=== PATIENT | female | born 1930 | race Caucasian/White ===

== ENCOUNTER 2017-12-02 20:16 | Inpatient (IN) | payer MEDICARE, BC ==
[~2017-12-02] VITALS: Ht 162.6 cm; Wt 52.2 kg
--- NOTE | 2017-12-02 20:23 | ED.ADGEN ---
Past History Past Medical History: CAD, Diverticulitis, Gallstones, Heart Disease, UTI Adult General Chief Complaint Chief Complaint ".. I am here for two things.. 'Terrence' my 9 yr Poodle.. she came home from the [place] from her bath, hair cut and trim.. and she was so excited.. she jumped up and scratch this lt. arm.... and it now getting orlin red... and sore.. and I am also had nausea all day.. after my oat meal this morning... and my lower abd. is tender.. I do get diverticulitis... and I started a 1000 mg of Amoxicillin.. Dr. Cruz gave it to me... if I start to get Diverticulitis.." HPI HPI Patient is a 87 year old female who presents with above hx and complaints of Lt forearm 4 cm laceration and cellulitis from injury by her Poodle "Terrence" on 10/30. Pt does not remember her last tetanus. Pt. also complaining of generalized abd. pain since this am. Patient's had 4 episodes of forceful vomiting. Patient denies any intake bad food. Patient denies any specific ill contacts or travel. Patient does have a history of diverticulitis. Does have a cardiac history which required placement of a pacer. Patient has had no change in medicines. Patient did have a stool today. Patient normally follows with Dr. Sanchez. Review of Systems Review of Systems Constitutional: Denies fever or chills [] Eyes: Denies change in visual acuity, redness, or eye pain [] HENT: Denies nasal congestion or sore throat [] Respiratory: Denies cough or shortness of breath [] Cardiovascular: No additional information not addressed in HPI [] GI: Plaints of abdominal pain, nausea, vomiting, : Denies dysuria or hematuria [] Musculoskeletal: Denies back pain or joint pain [] Integument: Denies rash or skin lesions []complains left forearm cellulitis Neurologic: Denies headache, focal weakness or sensory changes [] Endocrine: Denies polyuria or polydipsia [] All other systems were reviewed and found to be within normal limits, except as documented in this note. Family History Family History Noncontributory Current Medications Current Medications Current Medications Medications (Trade) Dose Ordered Sig/Shelley Start Time Stop Time Status Last Admin Dose Admin Ceftriaxone Sodium 1 gm/ Sodium Chloride 50 ml @ 100 mls/hr 1X ONCE 12/02/17 21:00 12/02/17 21:29 DC 12/02/17 21:57 100 MLS/HR Ceftriaxone Sodium (Rocephin) 1 gm STK-MED ONCE 12/02/17 21:19 12/02/17 21:20 DC Diphenhydramine HCl (Benadryl) 25 mg 1X ONCE 12/02/17 22:30 12/02/17 22:31 DC 12/02/17 22:36 25 MG Diphtheria/ Tetanus/Acell Pertussis (Boostrix) 0.5 ml ONCE ONCE 12/02/17 22:30 12/02/17 22:31 DC 12/02/17 22:08 0.5 ML Famotidine (Pepcid Vial) 20 mg 1X ONCE 12/02/17 21:30 12/02/17 21:31 DC 12/02/17 21:55 20 MG Fentanyl Citrate (Fentanyl 2ml Vial) 25 mcg 1X ONCE 12/02/17 21:30 12/02/17 21:31 DC Folic Acid (FOLIC ACID SYRINGE for ER) 5 mg STK-MED ONCE 12/03/17 01:13 12/03/17 01:14 DC Info (Do NOT chart on this entry -- for MONITORING) 1 each PRN DAILY PRN 12/02/17 21:30 12/04/17 21:29 Iohexol (Omnipaque 240 Mg/ml) 50 ml 1X ONCE 12/02/17 22:00 12/02/17 22:01 DC 12/03/17 00:12 50 ML Iohexol (Omnipaque 300 Mg/ml) 75 ml 1X ONCE 12/02/17 22:00 12/02/17 22:01 DC 12/03/17 00:11 75 ML Lactated Ringer's 1,000 ml @ 100 mls/hr Q10H 12/02/17 21:00 12/03/17 06:59 Magnesium Sulfate 50 ml @ 25 mls/hr 1X ONCE 12/02/17 23:45 12/03/17 01:44 Metronidazole 100 ml @ 100 mls/hr 1X ONCE 12/03/17 01:00 12/03/17 01:59 Multivitamins/ Minerals (Infuvite Adult) 10 ml STK-MED ONCE 12/03/17 01:13 12/03/17 01:14 DC Multivitamins/ Minerals 10 ml/ Folic Acid 1 mg/ Thiamine HCl 100 mg/Sodium Chloride 1,011.1 ml @ 1,000 mls/ hr 1X ONCE 12/03/17 01:00 12/03/17 02:00 Ondansetron HCl (Zofran Odt) 8 mg 1X ONCE 12/02/17 20:30 12/02/17 20:48 DC 12/02/17 20:46 8 MG Ondansetron HCl (Zofran) 8 mg 1X ONCE 12/02/17 22:00 12/02/17 22:01 DC Promethazine HCl (Phenergan Im) 25 mg 1X ONCE 12/02/17 22:30 12/02/17 22:31 DC 12/02/17 22:36 25 MG Sodium Bicarbonate (Sodium Bicarb Adult 8.4% Syr) 50 meq 1X ONCE 12/02/17 23:45 12/02/17 23:46 DC Sodium Chloride 50 ml @ As Directed STK-MED ONCE 12/02/17 21:19 12/02/17 21:20 DC Tetanus/ Diphtheria Toxoids Adsorbed (Tenivac Vial) 0.5 ml ONCE ONCE 12/02/17 21:30 12/02/17 21:31 Cancel Thiamine HCl 200 mg STK-MED ONCE 12/03/17 01:13 12/03/17 01:14 DC Allergies Allergies Allergies Coded Allergies Type Severity Reaction Last Updated Verified No Known Drug Allergies 12/02/17 No Physical Exam Physical Exam Constitutional: Moderately acute distress, non-toxic appearance. [] HENT: Normocephalic, atraumatic, bilateral external ears normal, oropharynx moist, no oral exudates, nose normal. [] Eyes: PERRLA, EOMI, conjunctiva normal, no discharge. [] Neck: Normal range of motion, no tenderness, supple, no stridor. [] Cardiovascular:Tachycardial Heart rate regular rhythm, no murmur [] Lungs & Thorax: Bilateral breath sounds equal at apex on auscultation [] Abdomen: Bowel sounds hyperactive, soft, generalize tenderness, tympanic distention, no masses, no pulsatile masses. [] Old surgical scar. Skin: Warm, dry, no erythema, no rash. Poor turgor. Dog scratch and cellulitis Lt. forearm. Back: No tenderness, no CVA tenderness. [] Kyphosis. Extremities: No tenderness, no cyanosis, no clubbing, ROM intact, no edema. [ Arthritis . Lt. forearm cellulitis as per HPI. Neurologic: Alert and oriented X 3, normal motor function, normal sensory function, no focal deficits noted. [] Psychologic: Affect anxious, judgement normal, mood normal. [] Current Patient Data Vital Signs Vital Signs Date Time Temp Pulse Resp B/P (MAP) Pulse Ox O2 Delivery O2 Flow Rate FiO2 12/02/17 20:30 98.5 91 16 98 Room Air Lab Results Laboratory Tests Test 12/02/17 21:00 12/02/17 23:10 White Blood Count 5.2 x10^3/uL (4.0-11.0) Red Blood Count 4.08 x10^6/uL (3.50-5.40) Hemoglobin 12.3 g/dL (12.0-15.5) Hematocrit 37.0 % (36.0-47.0) Mean Corpuscular Volume 91 fL (79-100) Mean Corpuscular Hemoglobin 30 pg (25-35) Mean Corpuscular Hemoglobin Concent 33 g/dL (31-37) Red Cell Distribution Width 13.0 % (11.5-14.5) Platelet Count 219 x10^3/uL (140-400) Neutrophils (%) (Auto) 76 % (31-73) H Lymphocytes (%) (Auto) 17 % (24-48) L Monocytes (%) (Auto) 6 % (0-9) Eosinophils (%) (Auto) 0 % (0-3) Basophils (%) (Auto) 0 % (0-3) Neutrophils # (Auto) 4.0 x10^3uL (1.8-7.7) Lymphocytes # (Auto) 0.9 x10^3/uL (1.0-4.8) L Monocytes # (Auto) 0.3 x10^3/uL (0.0-1.1) Eosinophils # (Auto) 0.0 x10^3/uL (0.0-0.7) Basophils # (Auto) 0.0 x10^3/uL (0.0-0.2) Prothrombin Time 9.6 SEC (9.4-11.4) Prothrombin Time INR 1.0 (0.9-1.1) PTT 27 SEC (23-33) D-Dimer (Amanda) 0.55 mg/L (0.00-0.50) H Sodium Level 125 mmol/L (136-145) L Potassium Level 3.9 mmol/L (3.5-5.1) Chloride Level 91 mmol/L (98-107) L Carbon Dioxide Level 24 mmol/L (21-32) Anion Gap 10 (6-14) Blood Urea Nitrogen 6 mg/dL (7-20) L Creatinine 0.7 mg/dL (0.6-1.0) Estimated GFR (Cockcroft-Gault) 79.5 Glucose Level 133 mg/dL (70-99) H Calcium Level 8.5 mg/dL (8.5-10.1) Magnesium Level 1.7 mg/dL (1.8-2.4) L Total Bilirubin 0.5 mg/dL (0.2-1.0) Direct Bilirubin 0.2 mg/dL (0.0-0.2) Aspartate Amino Transferase (AST) 25 U/L (15-37) Alanine Aminotransferase (ALT) 24 U/L (14-59) Alkaline Phosphatase 71 U/L (46-116) Creatine Kinase 244 U/L (26-192) H Creatine Kinase MB (Mass) 3.9 ng/mL (0.0-3.6) H Creatine Kinase MB Relative Index 1.6 % (0-4) Troponin I Quantitative < 0.017 ng/mL (0-0.055) [id number]-Type Natriuretic Peptide 194 pg/mL (0-449) Total Protein 7.1 g/dL (6.4-8.2) Albumin 3.5 g/dL (3.4-5.0) Lipase 126 U/L (73-393) Urine Collection Type U cath Urine Color Yellow Urine Clarity Hazy Urine pH 7.0 Urine Specific Girard 1.015 Urine Protein Neg (NEG-TRACE) Urine Glucose (UA) Neg mg/dL (NEG) Urine Ketones (Stick) Neg mg/dL (NEG) Urine Blood Neg (NEG) Urine Nitrite Neg (NEG) Urine Bilirubin Neg (NEG) Urine Urobilinogen Dipstick 0.2 mg/dL (0.2 mg/dL) Urine Leukocyte Esterase Mod (NEG) Urine RBC Occ /HPF (0-2) Urine WBC 11-20 /HPF (0-4) Urine Squamous Epithelial Cells Occ /LPF Urine Transitional Epithelial Cells Few /LPF Urine Bacteria Few /HPF (0-FEW) Urine Mucus Slight /LPF EKG EKG I interpretation EKG shows a sinus rhythm at a rate of 99 with some leftward axis. No findings acute STEMI of contralateral changes[] Radiology/Procedures Radiology/Procedures My interpretation of chest x-ray and acute abdomen shows- acute cardiopulmonary findings. No free air in the diaphragm. There is a lucency on right chest wall which is suspect is a skin fold but could be pneumomediastinum. Abdomen film shows gallstones. Does have a couple isolated loops of bowel. Degenerative joint changes.[] Course & Med Decision Making Course & Med Decision Making Pertinent Labs and Imaging studies reviewed. (See chart for details). Discussed presentation, testing and treatment plan with Dr. Moyer. Patient will be admitted on clear fluid diet. Continue antibiotics. [] Final Impression Final Impression 1. Abd. Pain 2. Cellulitis - Lt Fore arm 3. Hx. of Urinary incontinence[] 4. Hyponatremia 125 5. Hypomagnesium 1.7 6. Mild elevation D-dimer 0. 55 7. Nausea and Vomiting 8. UTI 9. Gall Stones- Possible Cholecystitis 10. Colitis- Transverse, descending colon and rectum Dragon Disclaimer Dragon Disclaimer This electronic medical record was generated, in whole or in part, using a voice recognition dictation system. LIBRADO HERNANDEZ MD Dec 02, 2017 20:23
[2017-12-02] MEDS ORDERED: ONDANSETRON ODT 4 MG TAB.RAPDIS PO ONE (20:30)
[2017-12-02] MEDS: IV RINGERS SOLUTION,LACTATED 1,000 ML IV SCH (21:00)
[2017-12-02 21:13] LABS: BASO % 0 % (0-3); EOS % 0 % (0-3); HEMOGLOBIN 12.3 g/dL (12.0-15.5); LYMPH # 0.9 x10^3/uL (1.0-4.8); LYMPH % 17 % (24-48); MEAN CORPUSCULAR HEMOGLOBIN 30 pg (25-35); MEAN CORPUSCULAR HGB CONC 33 g/dL (31-37); MEAN CORPUSCULAR VOLUME 91 fL (79-100); MONO # 0.3 x10^3/uL (0.0-1.1); MONO % 6 % (0-9); NEUT % 76 % (31-73); PLATELET COUNT 219 x10^3/uL (140-400); RED BLOOD COUNT 4.08 x10^6/uL (3.50-5.40); WHITE BLOOD COUNT 5.2 x10^3/uL (4.0-11.0)
[2017-12-02] MEDS ORDERED: cefTRIAXone SODIUM 1 GM VIAL IV ONE (21:19)
[2017-12-02] MEDS ORDERED: IV NORMAL SALINE 50ML 50 ML ONE (21:19)
[2017-12-02] MEDS ORDERED: ONDANSETRON PF 4 MG/2 ML VIAL. ONE (21:21)
[2017-12-02] MEDS ORDERED: TETANUS AND DIPHTHERIA TOX/PF 0.5 ML VIAL. VAX IM ONE (21:30)
[2017-12-02] MEDS ORDERED: FAMOTIDINE 20 MG/2 ML VIAL IVP ONE (21:30)
[2017-12-02] MEDS ORDERED: CONTRAST GIVEN MC PRN (21:30)
[2017-12-02 21:53] LABS: ALBUMIN 3.5 g/dL (3.4-5.0); CALCIUM 8.5 mg/dL (8.5-10.1); CREATININE 0.7 mg/dL (0.6-1.0); DIRECT BILIRUBIN 0.2 mg/dL (0.0-0.2); GFR 79.5; MAGNESIUM 1.7 mg/dL (1.8-2.4); POTASSIUM 3.9 mmol/L (3.5-5.1); TOTAL BILIRUBIN 0.5 mg/dL (0.2-1.0); TOTAL PROTEIN 7.1 g/dL (6.4-8.2)
[2017-12-02] MEDS ORDERED: IOHEXOL 300 MG/ML 75 ML VIAL. IV ONE (22:00)
[2017-12-02] MEDS ORDERED: IOHEXOL 240 MG/ML 50ML VIAL. PO ONE (22:00)
[2017-12-02] MEDS ORDERED: ONDANSETRON PF 4 MG/2 ML VIAL. IV ONE (22:00)
--- NOTE | 2017-12-02 22:25 | RAD ---
Acute abdominal series with single view chest December 02, 2017 INDICATION: Abdominal pain, nausea and vomiting. COMPARISON: None available. TECHNIQUE: Single view of the chest, upright view of the abdomen and supine view of abdomen are provided. FINDINGS: The cardiomediastinal silhouette is within normal limits. There are no pleural effusions. No pulmonary vascular congestion or pneumothorax. Lucency along the right heart border and left AP window may represent pneumomediastinum. Further evaluation with CT chest may be of benefit. There is no free intraperitoneal air. There are no dilated loops of small or large bowel. Calcifications in the right upper quadrant may represent gallstones. Alternatively, findings could represent renal calculi. Phleboliths are identified within the pelvis. IMPRESSION: Lucency along the right heart border and left AP window may represent pneumomediastinum. Further evaluation with CT chest may be of benefit. Nonobstructive bowel gas pattern. Gallstones versus cholelithiasis. FOR INTERNAL CODING PURPOSES Critical result: Findings discussed with LIBRADO HERNANDEZ at 12/02/2017 10:21 PM. RESULT CODE: (C) Electronically signed by: Verónica Maria MD (12/02/2017 10:21 PM) [id number]
[2017-12-02] MEDS ORDERED: DIPHTH,PERTUSS(ACELL),TET TOX 0.5 ML DISP.SYRIN. VAX IM ONE (22:30)
[2017-12-02] MEDS ORDERED: diphenhydrAMINE 50 MG/ML VIAL IVP ONE (22:30)
[2017-12-02] MEDS ORDERED: PROMETHAZINE IM 25 MG/ML VIAL IM ONE (22:30)
[2017-12-02 23:38] LABS: BILIRUBIN,URINE NEG (NEG); CLARITY,URINE HAZY; COLOR,URINE YELLOW; GLUCOSE,URINE NEG (NEG)
[2017-12-02 23:39] LABS: BACTERIA,URINE FEW /HPF (0-FEW); NITRITE,URINE NEG (NEG); RBC,URINE OCC /HPF (0-2); SQUAMOUS EPITHELIAL CELL,UR OCC /LPF; UROBILINOGEN,URINE 0.2 mg/dL (0.2 mg/dL)
[2017-12-02] MEDS ORDERED: MAGNESIUM SULFATE 2GM 50 ML IV ONE (23:45)
[2017-12-02] MEDS ORDERED: SODIUM BICARB ADULT 8.4% 50 MEQ/50 ML DISP.SYRIN. IV ONE (23:45)
--- NOTE | 2017-12-03 00:10 | EKG ---
[address] [address] Test Date: 2017-12-02 Test Time: 21:02:51 Pat Name: RUDDY RAMIREZ Department: Room: Gender: F Hand Surgeon: : [id number] Requested By: LIBRADO HERNANDEZ Order Number: [id number] Reading MD: Cameron Mcrae Measurements Intervals [place] Rate: 89 P: 60 NV: 158 QRS: -13 QRSD: 80 T: 59 QT: 368 QTc: 449 Interpretive Statements SINUS RHYTHM LEFTWARD AXIS Electronically Signed On 12-04-2017 11:23:14 CDT by Cameron Mcrae
--- NOTE | 2017-12-03 00:59 | RAD ---
Examination: CT of the chest abdomen pelvis with IV contrast HISTORY: History of abdominal pain, nausea, vomiting, pneumomediastinum COMPARISON: None available Technique: Axial CT images of the chest abdomen pelvis were performed with IV contrast. Coronal and sagittal reformats were performed Exposure: One or more of the following individualized dose reduction techniques were utilized for this examination: 1. Automated exposure control 2. Adjustment of the mA and/or kV according to patient size 3. Use of iterative reconstruction technique FINDINGS: The central airways are patent. Mild cardiomegaly. The caliber of the aorta grossly appears unremarkable. No evidence of pneumomediastinum. Minimal bibasilar lung atelectasis. 4 mm solid nodule identified in the left lower lobe of the lung. No evidence of free air identified in the abdomen. The visualized liver, spleen, adrenals grossly appears unremarkable. The gallbladder is mildly distended. Questionable mild fat stranding identified about the gallbladder. Multiple gallstones identified within the gallbladder. Cystic structures identified in the left kidney with the largest measuring 1.7 cm likely cysts. The stomach is mildly distended. The visualized pancreas grossly appears unremarkable. The small bowel is nondilated. The bilateral kidneys enhance symmetrically. Small hiatal hernia. The stomach is mildly distended. The small bowel is nondilated. The evaluation of appendix is limited. There is mild thickened appearance of the wall of the transverse colon and the descending colon with surrounding probable minimal fat stranding Multiple sigmoid colon diverticulosis. There is mild thickened appearance of the wall of the rectum with surrounding mild inflammatory fat stranding. Moderately distended urinary bladder. There is moderate compression changes of T11, T12 vertebral bodies. Moderate degenerative changes lumbar spine. IMPRESSION: 1. No evidence of pneumomediastinum. 4 mm nodule identified in the left lower lobe of the lung. Follow-up per Fleischner Society guidelines with a follow-up CT in 3-6 months. 2. Mild thickened appearance of the wall of the transverse colon and the descending colon with surrounding fat stranding probably colitis. There is mild thickened appearance of the wall of the rectum with surrounding fat stranding probably proctitis. Multiple sigmoid colon diverticulosis. 3. Cholelithiasis. Mild fat stranding identified about the gallbladder. Cholecystitis is not completely excluded. Electronically signed by: Harris Craig MD (12/03/2017 12:55 AM) [place] [id number]
[2017-12-03] MEDS ORDERED: MVI, ADULT NO.4 WITH VIT K 10 ML, FOLIC ACID SYRINGE for ER 1 MG, THIAMINE INJ 100 MG i... IV ONE ×4 (01:00)
[2017-12-03] MEDS ORDERED: THIAMINE 200 MG/2 ML VIAL. IV ONE (01:13)
[2017-12-03] MEDS ORDERED: FOLIC ACID 5 MG/ML SYRINGE for ER IV ONE (01:13)
[2017-12-03] MEDS ORDERED: MVI, ADULT NO.4 WITH VIT K 10 ML VIAL IV ONE (01:13)
[2017-12-03] MEDS ORDERED: IV RINGERS SOLUTION,LACTATED 1,000 ML IV SCH (01:30)
[2017-12-03] MEDS ORDERED: diphenhydrAMINE 50 MG/ML VIAL IV PRN (01:30)
[2017-12-03] MEDS ORDERED: PROMETHAZINE IM 25 MG/ML VIAL IM PRN (01:30)
[2017-12-03] MEDS ORDERED: ONDANSETRON PF 4 MG/2 ML VIAL. IV PRN (01:30)
[2017-12-03 03:45] VITALS: BP 174/83
[2017-12-03] MEDS ORDERED: Influenza vaccine per PROTOCOL. MC PRN (04:00)
[2017-12-03] MEDS ORDERED: [UNRECOGNIZED DRUG - REMARK] IV SCH ×4 (04:00)
[2017-12-03] MEDS ORDERED: CHOL10003 PO (04:10)
[2017-12-03] MEDS ORDERED: THYR16.2 PO (04:11)
[2017-12-03] MEDS ORDERED: ASPI81TA59 PO (04:11)
[2017-12-03] MEDS ORDERED: LOSA25TA5 PO (04:12)
[2017-12-03] MEDS ORDERED: ASCO500C9 PO (04:13)
[2017-12-03] MEDS ORDERED: [UNRECOGNIZED DRUG - OTHER] (04:16)
[2017-12-03] MEDS: IV RINGERS SOLUTION,LACTATED 1,000 ML IV SCH (04:48)
[2017-12-03] MEDS ORDERED: diphenhydrAMINE HCL 25 MG CAPSULE PO PRN (05:00)
[2017-12-03 05:13] VITALS: BP 172/83
[2017-12-03 07:00] LABS: BASO % 0 % (0-3); EOS % 0 % (0-3); HEMOGLOBIN 12.1 g/dL (12.0-15.5); LYMPH # 2.1 x10^3/uL (1.0-4.8); LYMPH % 37 % (24-48); MEAN CORPUSCULAR HEMOGLOBIN 30 pg (25-35); MEAN CORPUSCULAR HGB CONC 34 g/dL (31-37); MEAN CORPUSCULAR VOLUME 91 fL (79-100); MONO # 0.6 x10^3/uL (0.0-1.1); MONO % 11 % (0-9); NEUT # 2.9 x10^3uL (1.8-7.7); NEUT % 51 % (31-73); PLATELET COUNT 224 x10^3/uL (140-400); RED BLOOD COUNT 3.98 x10^6/uL (3.50-5.40); RED CELL DISTRIBUTION WIDTH 13.1 % (11.5-14.5); WHITE BLOOD COUNT 5.7 x10^3/uL (4.0-11.0)
[2017-12-03 07:14] LABS: AMYLASE 62 U/L (25-115); LIPASE 110 U/L (73-393)
[2017-12-03 07:18] LABS: ALBUMIN/GLOBULIN RATIO 0.9 (1.0-1.7); CALCIUM 8.4 mg/dL (8.5-10.1); CREATININE 0.7 mg/dL (0.6-1.0); GFR 79.5; POTASSIUM 3.7 mmol/L (3.5-5.1); TOTAL BILIRUBIN 0.5 mg/dL (0.2-1.0); TOTAL PROTEIN 6.2 g/dL (6.4-8.2)
[2017-12-03] MEDS ORDERED: BACITRACIN/POLYMYXIN B TOPICAL OINT 15GM TUBE. TP SCH (09:00)
[2017-12-03] MEDS ORDERED: FAMOTIDINE 20 MG TABLET PO SCH (09:00)
--- NOTE | 2017-12-03 10:05 | RAD ---
Bilateral lower extremity venous ultrasound, 12/03/2017: History: Elevated d-dimer Duplex evaluation of the deep veins in the lower extremities was performed including grayscale, color-flow and spectral Doppler analysis. The femoral and popliteal veins demonstrate normal compressibility and normal responses to distal augmentation maneuvers. Color imaging of those vessels shows no evidence of intraluminal clot. The visualized deep veins in both calves are patent. Incidental note is made of a 6 x 3.9 x 2.3 cm fluid collection in the left popliteal fossa compatible with a Zimmerman's cyst. IMPRESSION: 1. There is no sonographic evidence of deep vein thrombosis in either lower extremity. 2. Left popliteal cyst. Electronically signed by: Stone Castrejon MD (12/03/2017 10:01 AM) [facility]
[2017-12-03 10:59] VITALS: BP 147/65
--- NOTE | 2017-12-03 13:18 | PDOC1 ---
History of Present Illness History of Present Illness 87-year-old female with history of diverticulitis presented to the emergency department with left lower quadrant abdominal pain and left arm abrasion. Patient states that last she took her dog to the groomer and while transporting her back home the dog accidentally scratched the patient's dorsal left forearm. Produce a small skin tear, bleeding was controlled and is scabbed over however she's had increasing redness and tenderness and warmth since that time. Since antibiotics were initiated yesterday she has seen significant improvement, pain has resolved swelling and redness has improved significantly. Tetanus is up-to-date. Patient also states that she's been dealing with diverticulitis since around 1979. When she begins to develop left lower quadrant discomfort she takes amoxicillin which usually improves her symptoms. Yesterday morning she noticed the left lower quadrant discomfort and took her home amoxicillin however throughout the day her discomfort worsened and she had 4 episodes of forceful emesis followed by dry heaving. She presented to the emergency department in great discomfort and very nauseous. She was extensively evaluated in the emergency department, EKG was normal sinus rhythm at 99 bpm with no significant changes. D-dimer was 0.55, sodium was 125 (improved to 134 today with hydration) , and urine grossly positive for infection. CT chest abdomen and pelvis: IMPRESSION: 1. No evidence of pneumomediastinum. 4 mm nodule identified in the left lower lobe of the lung. Follow-up per Fleischner Society guidelines with a follow-up CT in 3-6 months. 2. Mild thickened appearance of the wall of the transverse colon and the descending colon with surrounding fat stranding probably colitis. There is mild thickened appearance of the wall of the rectum with surrounding fat stranding probably proctitis. Multiple sigmoid colon diverticulosis. 3. Cholelithiasis. Mild fat stranding identified about the gallbladder. Cholecystitis is not completely excluded. She was admitted for pain control, IV hydration and antibiotics, and anti- emetics. Lower extremity Dopplers overnight negative for DVT. I find her sitting up in bed watching television with company at the bedside in no apparent distress. She is very pleasant and states that although she has an occasional sensation of nausea and very mild left lower quadrant discomfort she would like to go home. She feels that she can take oral antibiotics and hydrate and agrees to follow-up with Dr. Kaiser earlier this week. Past medical history: Coronary artery disease, diverticulitis, gallstones, urinary tract infection Past surgical history: Pacemaker Social history: Denies etoh/tob or illicit substances Chief Complaint: NAUSEA/VOMITING/DIARRHEA Allergies: Coded Allergies: No Known Drug Allergies (Unverified , 12/02/17) Review of Systems Review Of Systems Fourteen system , review of systems has been reviewed. See HPI for pertinent positives and negative responses, other herbert all other systems are negative, non pertinent or non contributory Constitutional: No: Fever, Chills, Sweats, Weakness Eyes: No: Blurry vision, Eye Pain, Photophobia ENT: No: Ear pain, Nose congestion, Throat pain Respiratory: No: Cough, Shortness of breath, Wheezing Cardiovascular: No: Chest Pain, Palpitations, Edema Gastrointestinal: YES: Nausea, Vomiting, Abdominal Pain; No: Diarrhea, Constipation, Melena, Hematochezia Musculoskeletal: No: Gait Disturbance, Joint Swelling SKIN: YES: Other (see history of present illness) Neurological: No: Confusion, Dizziness, Headaches Medications Current Medications Ondansetron HCl (Zofran Odt) 8 mg 1X ONCE PO Last administered on 12/02/17at 20 :46; Start 12/02/17 at 20:30; Stop 12/02/17 at 20:48; Status DC Lactated Ringer's 1,000 ml @ 100 mls/hr Q10H IV Last administered on at 04:48; Start 12/02/17 at 21:00; Stop 12/03/17 at 07:00; Status DC Tetanus/ Diphtheria Toxoids Adsorbed (Tenivac Vial) 0.5 ml ONCE ONCE VAX IM ; Start 12/02/17 at 21:30; Stop 12/02/17 at 21:31; Status Cancel Ceftriaxone Sodium 1 gm/ Sodium Chloride 50 ml @ 100 mls/hr 1X ONCE IV Last administered on 12/02/17at 21:57; Start 12/02/17 at 21:00; Stop 12/02/17 at 21:29 ; Status DC Famotidine (Pepcid Vial) 20 mg 1X ONCE IVP Last administered on 12/02/17at 21: 55; Start 12/02/17 at 21:30; Stop 12/02/17 at 21:31; Status DC Fentanyl Citrate (Fentanyl 2ml Vial) 25 mcg 1X ONCE IV ; Start 12/02/17 at 21: 30; Stop 12/02/17 at 21:31; Status DC Iohexol (Omnipaque 240 Mg/ml) 50 ml 1X ONCE PO Last administered on 12/03/17at 00:12; Start 12/02/17 at 22:00; Stop 12/02/17 at 22:01; Status DC Iohexol (Omnipaque 300 Mg/ml) 75 ml 1X ONCE IV Last administered on 12/03/17at 00:11; Start 12/02/17 at 22:00; Stop 12/02/17 at 22:01; Status DC Sodium Chloride 50 ml @ As Directed STK-MED ONCE .ROUTE ; Start 12/02/17 at 21: 19; Stop 12/02/17 at 21:20; Status DC Ceftriaxone Sodium (Rocephin) 1 gm STK-MED ONCE IV ; Start 12/02/17 at 21:19; Stop 12/02/17 at 21:20; Status DC Ondansetron HCl (Zofran) 4 mg STK-MED ONCE .ROUTE ; Start 12/02/17 at 21:21; Stop 12/02/17 at 21:22; Status DC Info (Do NOT chart on this entry -- for MONITORING) 1 each PRN DAILY PRN MC SEE COMMENTS; Start 12/02/17 at 21:30; Stop 12/04/17 at 21:29 Ondansetron HCl (Zofran) 8 mg 1X ONCE IV ; Start 12/02/17 at 22:00; Stop at 22:01; Status DC Diphtheria/ Tetanus/Acell Pertussis (Boostrix) 0.5 ml ONCE ONCE VAX IM Last administered on 12/02/17at 22:08; Start 12/02/17 at 22:30; Stop 12/02/17 at 22:31 ; Status DC Promethazine HCl (Phenergan Im) 25 mg 1X ONCE IM Last administered on at 22:36; Start 12/02/17 at 22:30; Stop 12/02/17 at 22:31; Status DC Diphenhydramine HCl (Benadryl) 25 mg 1X ONCE IVP Last administered on at 22:36; Start 12/02/17 at 22:30; Stop 12/02/17 at 22:31; Status DC Sodium Bicarbonate (Sodium Bicarb Adult 8.4% Syr) 50 meq 1X ONCE IV Last administered on 12/03/17at 01:22; Start 12/02/17 at 23:45; Stop 12/02/17 at 23:46 ; Status DC Magnesium Sulfate 50 ml @ 25 mls/hr 1X ONCE IV Last administered on 12/03/17at 01:22; Start 12/02/17 at 23:45; Stop 12/03/17 at 01:44; Status DC Metronidazole 100 ml @ 100 mls/hr 1X ONCE IV Last administered on 12/03/17at 01:22; Start 12/03/17 at 01:00; Stop 12/03/17 at 01:59; Status DC Multivitamins/ Minerals 10 ml/ Folic Acid 1 mg/ Thiamine HCl 100 mg/Sodium Chloride 1,011.1 ml @ 1,000 mls/ hr 1X ONCE IV ; Start 12/03/17 at 01:00; Stop 12/03/17 at 02:00; Status Cancel Thiamine HCl 200 mg STK-MED ONCE IV ; Start 12/03/17 at 01:13; Stop 12/03/17 at 01:14; Status DC Multivitamins/ Minerals (Infuvite Adult) 10 ml STK-MED ONCE IV ; Start 12/03/17 at 01:13; Stop 12/03/17 at 01:14; Status DC Folic Acid (FOLIC ACID SYRINGE for ER) 5 mg STK-MED ONCE IV ; Start 12/03/17 at 01:13; Stop 12/03/17 at 01:14; Status DC Ondansetron HCl (Zofran) 4 mg PRN Q4HRS PRN IV NAUSEA/VOMITING; Start 12/03/17 at 01:30; Stop 12/04/17 at 01:29 Fentanyl Citrate (Fentanyl 2ml Vial) 25 mcg PRN Q1HR PRN IV PAIN; Start at 01:30; Stop 12/04/17 at 01:29 Ceftriaxone Sodium 1 gm/ Sodium Chloride 50 ml @ 100 mls/hr QHS IV ; Start at 21:00 Metronidazole 100 ml @ 100 mls/hr Q8HRS IV Last administered on 12/03/17at 06: 06; Start 12/03/17 at 06:00 Famotidine (Pepcid) 20 mg DAILY PO ; Start 12/03/17 at 09:00 Lactated Ringer's 1,000 ml @ 160 mls/hr Q6H15M IV ; Start 12/03/17 at 01:30; Stop 12/03/17 at 05:22; Status DC Bacitracin/ Polymyxin B Sulfate (Polysporin) 1 jaci BID TP ; Start 12/03/17 at 09 :00 Promethazine HCl (Phenergan Im) 25 mg QIDPRN PRN IM nv; Start 12/03/17 at 01:30 Diphenhydramine HCl (Benadryl) 25 mg QIDPRN PRN IV nv; Start 12/03/17 at 01:30 ; Stop 12/03/17 at 04:57; Status DC Folic Acid 1 mg/ Thiamine HCl 100 mg/Multivitamins/ Minerals 10 ml/ Lactated Ringer's 1,011.2 ml @ 1,000 mls/ hr Q1H1M IV Last administered on 12/03/17at 04 :00; Start 12/03/17 at 04:00; Stop 12/03/17 at 05:00; Status DC Info (FLU VACCINE per PROTOCOL) 1 ea PRN 1X PRN MC PER PROTOCOL; Start at 04:00; Status UNV Influenza Virus Vaccine (Afluria Trivalent [id number] Syringe) 0.5 ml ONCE ONCE VAX IM ; Start 12/03/17 at 09:00; Stop 12/03/17 at 09:02; Status DC Diphenhydramine HCl (Benadryl) 25 mg PRN Q6HRS PRN PO ITCHING Last administered on 12/03/17at 05:11; Start 12/03/17 at 05:00 Active Scripts Active Reported [bimetriq] Vitamin C (Ascorbic Acid) 500 Mg Capsule 500 Mg PO DAILY Losartan Potassium 25 Mg Tablet 25 Mg PO DAILY Nature-Throid (Thyroid,Pork) 16.25 Mg Tablet 16.25 Mg PO DAILY Children's Aspirin (Aspirin) 81 Mg Tab.chew 81 Mg PO 3X/WEEK Vitamin D3 (Cholecalciferol (Vitamin D3)) 1,000 Unit Tablet 1 Tab PO DAILY Exam Vital Signs Vital Signs Date Time Temp Pulse Resp B/P (MAP) Pulse Ox O2 Delivery O2 Flow Rate FiO2 12/03/17 10:59 98.1 70 20 147/65 (92) 98 Room Air General Appearance: Alert, Oriented X3, Cooperative, No acute distress HEENT: Atraumatic, PERRLA, EOMI, Mucous membr. moist/pink Respiratory: Clear to auscultation, Normal air movement Heart: Regular rate, No murmurs Abdominal: Normal bowel sounds, Soft (nondistended, negative Johnson and McBurney, mild abdominal muscle and left lower quadrant tenderness without rebound or guarding no palpable masses) Extremities: No clubbing, No cyanosis, No edema Skin: No rashes (1.5 cm scabbed skin tear dorsal left forearm with 3 cm halo induration and erythema and warmth no discharge or palpable abscess) Neuro: Normal speech, Normal tone, Cranial nerves 3-12 NL Psych/Mental Status: Mental status NL, Mood NL Assessment/Plan Assessment/Plan Colitis/diverticulitis Left upper extremity skin tear and cellulitis Elevated d-dimer Dehydration with hyponatremia (sodium 134 improved from 125 with hydration Urinary tract infection Cipro 500 mg twice a day 10 days Flagyl 500 mg twice a day 10 days Aggressive hydration Zofran ODT 4 mg when necessary Follow-up with Dr. Kaiser in 3-5 days for recheck COURSE Allergies Coded Allergies Type Severity Reaction Last Updated Verified No Known Drug Allergies 12/02/17 No Laboratory Tests Test 12/02/17 21:00 12/02/17 23:10 12/03/17 06:28 White Blood Count 5.2 x10^3/uL (4.0-11.0) 5.7 x10^3/uL (4.0-11.0) Red Blood Count 4.08 x10^6/uL (3.50-5.40) 3.98 x10^6/uL (3.50-5.40) Hemoglobin 12.3 g/dL (12.0-15.5) 12.1 g/dL (12.0-15.5) Hematocrit 37.0 % (36.0-47.0) 36.0 % (36.0-47.0) Mean Corpuscular Volume 91 fL (79-100) 91 fL (79-100) Mean Corpuscular Hemoglobin 30 pg (25-35) 30 pg (25-35) Mean Corpuscular Hemoglobin Concent 33 g/dL (31-37) 34 g/dL (31-37) Red Cell Distribution Width 13.0 % (11.5-14.5) 13.1 % (11.5-14.5) Platelet Count 219 x10^3/uL (140-400) 224 x10^3/uL (140-400) Neutrophils (%) (Auto) 76 % (31-73) 51 % (31-73) Lymphocytes (%) (Auto) 17 % (24-48) 37 % (24-48) Monocytes (%) (Auto) 6 % (0-9) 11 % (0-9) Eosinophils (%) (Auto) 0 % (0-3) 0 % (0-3) Basophils (%) (Auto) 0 % (0-3) 0 % (0-3) Neutrophils # (Auto) 4.0 x10^3uL (1.8-7.7) 2.9 x10^3uL (1.8-7.7) Lymphocytes # (Auto) 0.9 x10^3/uL (1.0-4.8) 2.1 x10^3/uL (1.0-4.8) Monocytes # (Auto) 0.3 x10^3/uL (0.0-1.1) 0.6 x10^3/uL (0.0-1.1) Eosinophils # (Auto) 0.0 x10^3/uL (0.0-0.7) 0.0 x10^3/uL (0.0-0.7) Basophils # (Auto) 0.0 x10^3/uL (0.0-0.2) 0.0 x10^3/uL (0.0-0.2) Prothrombin Time 9.6 SEC (9.4-11.4) Prothromb Time International Ratio 1.0 (0.9-1.1) Activated Partial Thromboplast Time 27 SEC (23-33) D-Dimer (Amanda) 0.55 mg/L (0.00-0.50) Sodium Level 125 mmol/L (136-145) 134 mmol/L (136-145) Potassium Level 3.9 mmol/L (3.5-5.1) 3.7 mmol/L (3.5-5.1) Chloride Level 91 mmol/L (98-107) 101 mmol/L (98-107) Carbon Dioxide Level 24 mmol/L (21-32) 30 mmol/L (21-32) Anion Gap 10 (6-14) 3 (6-14) Blood Urea Nitrogen 6 mg/dL (7-20) 4 mg/dL (7-20) Creatinine 0.7 mg/dL (0.6-1.0) 0.7 mg/dL (0.6-1.0) Estimated GFR (Cockcroft-Gault) 79.5 79.5 Glucose Level 133 mg/dL (70-99) 82 mg/dL (70-99) Calcium Level 8.5 mg/dL (8.5-10.1) 8.4 mg/dL (8.5-10.1) Magnesium Level 1.7 mg/dL (1.8-2.4) Total Bilirubin 0.5 mg/dL (0.2-1.0) 0.5 mg/dL (0.2-1.0) Direct Bilirubin 0.2 mg/dL (0.0-0.2) Aspartate Amino Transf (AST/SGOT) 25 U/L (15-37) 22 U/L (15-37) Alanine Aminotransferase (ALT/SGPT) 24 U/L (14-59) 21 U/L (14-59) Alkaline Phosphatase 71 U/L (46-116) 65 U/L (46-116) Creatine Kinase 244 U/L (26-192) Creatine Kinase MB (Mass) 3.9 ng/mL (0.0-3.6) Creatine Kinase MB Relative Index 1.6 % (0-4) Troponin I Quantitative < 0.017 ng/mL (0-0.055) DP-Alh-Y-Type Natriuretic Peptide 194 pg/mL (0-449) Total Protein 7.1 g/dL (6.4-8.2) 6.2 g/dL (6.4-8.2) Albumin 3.5 g/dL (3.4-5.0) 3.0 g/dL (3.4-5.0) Lipase 126 U/L (73-393) 110 U/L (73-393) Thyroid Stimulating Hormone (TSH) 3.070 uIU/mL (0.358-3.740) Urine Collection Type U cath Urine Color Yellow Urine Clarity Hazy Urine pH 7.0 Urine Specific [place] 1.015 Urine Protein Neg (NEG-TRACE) Urine Glucose (UA) Neg mg/dL (NEG) Urine Ketones (Stick) Neg mg/dL (NEG) Urine Blood Neg (NEG) Urine Nitrite Neg (NEG) Urine Bilirubin Neg (NEG) Urine Urobilinogen Dipstick 0.2 mg/dL (0.2 mg/dL) Urine Leukocyte Esterase Mod (NEG) Urine RBC Occ /HPF (0-2) Urine WBC 11-20 /HPF (0-4) Urine Squamous Epithelial Cells Occ /LPF Urine Transitional Epithelial Cells Few /LPF Urine Bacteria Few /HPF (0-FEW) Urine Mucus Slight /LPF BUN/Creatinine Ratio 6 (6-20) Albumin/Globulin Ratio 0.9 (1.0-1.7) Amylase Level 62 U/L (25-115) Current Medications Medications (Trade) Dose Ordered Sig/Shelley Route PRN Reason Start Time Stop Time Status Last Admin Dose Admin Ondansetron HCl (Zofran Odt) 8 mg 1X ONCE PO 12/02/17 20:30 12/02/17 20:48 DC 12/02/17 20:46 Lactated Ringer's 1,000 ml @ 100 mls/hr Q10H IV 12/02/17 21:00 12/03/17 07:00 DC 12/03/17 04:48 Tetanus/ Diphtheria Toxoids Adsorbed (Tenivac Vial) 0.5 ml ONCE ONCE VAX IM 12/02/17 21:30 12/02/17 21:31 Cancel Ceftriaxone Sodium 1 gm/ Sodium Chloride 50 ml @ 100 mls/hr 1X ONCE IV 12/02/17 21:00 12/02/17 21:29 DC 12/02/17 21:57 Famotidine (Pepcid Vial) 20 mg 1X ONCE IVP 12/02/17 21:30 12/02/17 21:31 DC 12/02/17 21:55 Fentanyl Citrate (Fentanyl 2ml Vial) 25 mcg 1X ONCE IV 12/02/17 21:30 12/02/17 21:31 DC Iohexol (Omnipaque 240 Mg/ml) 50 ml 1X ONCE PO 12/02/17 22:00 12/02/17 22:01 DC 12/03/17 00:12 Iohexol (Omnipaque 300 Mg/ml) 75 ml 1X ONCE IV 12/02/17 22:00 12/02/17 22:01 DC 12/03/17 00:11 Sodium Chloride 50 ml @ As Directed STK-MED ONCE .ROUTE 12/02/17 21:19 12/02/17 21:20 DC Ceftriaxone Sodium (Rocephin) 1 gm STK-MED ONCE IV 12/02/17 21:19 12/02/17 21:20 DC Ondansetron HCl (Zofran) 4 mg STK-MED ONCE .ROUTE 12/02/17 21:21 12/02/17 21:22 DC Info (Do NOT chart on this entry -- for MONITORING) 1 each PRN DAILY PRN MC SEE COMMENTS 12/02/17 21:30 12/04/17 21:29 Ondansetron HCl (Zofran) 8 mg 1X ONCE IV 12/02/17 22:00 12/02/17 22:01 DC Diphtheria/ Tetanus/Acell Pertussis (Boostrix) 0.5 ml ONCE ONCE VAX IM 12/02/17 22:30 12/02/17 22:31 DC 12/02/17 22:08 Promethazine HCl (Phenergan Im) 25 mg 1X ONCE IM 12/02/17 22:30 12/02/17 22:31 DC 12/02/17 22:36 Diphenhydramine HCl (Benadryl) 25 mg 1X ONCE IVP 12/02/17 22:30 12/02/17 22:31 DC 12/02/17 22:36 Sodium Bicarbonate (Sodium Bicarb Adult 8.4% Syr) 50 meq 1X ONCE IV 12/02/17 23:45 12/02/17 23:46 DC 12/03/17 01:22 Magnesium Sulfate 50 ml @ 25 mls/hr 1X ONCE IV 12/02/17 23:45 12/03/17 01:44 DC 12/03/17 01:22 Metronidazole 100 ml @ 100 mls/hr 1X ONCE IV 12/03/17 01:00 12/03/17 01:59 DC 12/03/17 01:22 Multivitamins/ Minerals 10 ml/ Folic Acid 1 mg/ Thiamine HCl 100 mg/Sodium Chloride 1,011.1 ml @ 1,000 mls/ hr 1X ONCE IV 12/03/17 01:00 12/03/17 02:00 Cancel Thiamine HCl 200 mg STK-MED ONCE IV 12/03/17 01:13 12/03/17 01:14 DC Multivitamins/ Minerals (Infuvite Adult) 10 ml STK-MED ONCE IV 12/03/17 01:13 12/03/17 01:14 DC Folic Acid (FOLIC ACID SYRINGE for ER) 5 mg STK-MED ONCE IV 12/03/17 01:13 12/03/17 01:14 DC Ondansetron HCl (Zofran) 4 mg PRN Q4HRS PRN IV NAUSEA/VOMITING 12/03/17 01:30 12/04/17 01:29 Fentanyl Citrate (Fentanyl 2ml Vial) 25 mcg PRN Q1HR PRN IV PAIN 12/03/17 01:30 12/04/17 01:29 Ceftriaxone Sodium 1 gm/ Sodium Chloride 50 ml @ 100 mls/hr QHS IV 12/03/17 21:00 Metronidazole 100 ml @ 100 mls/hr Q8HRS IV 12/03/17 06:00 12/03/17 06:06 Famotidine (Pepcid) 20 mg DAILY PO 12/03/17 09:00 Lactated Ringer's 1,000 ml @ 160 mls/hr Q6H15M IV 12/03/17 01:30 12/03/17 05:22 DC Bacitracin/ Polymyxin B Sulfate (Polysporin) 1 jaci BID TP 12/03/17 09:00 Promethazine HCl (Phenergan Im) 25 mg QIDPRN PRN IM nv 12/03/17 01:30 Diphenhydramine HCl (Benadryl) 25 mg QIDPRN PRN IV nv 12/03/17 01:30 12/03/17 04:57 DC Folic Acid 1 mg/ Thiamine HCl 100 mg/Multivitamins/ Minerals 10 ml/ Lactated Ringer's 1,011.2 ml @ 1,000 mls/ hr Q1H1M IV 12/03/17 04:00 12/03/17 05:00 DC 12/03/17 04:00 Info (FLU VACCINE per PROTOCOL) 1 ea PRN 1X PRN MC PER PROTOCOL 12/03/17 04:00 UNV Influenza Virus Vaccine (Afluria Trivalent [id number] Syringe) 0.5 ml ONCE ONCE VAX IM 12/03/17 09:00 12/03/17 09:02 DC Diphenhydramine HCl (Benadryl) 25 mg PRN Q6HRS PRN PO ITCHING 12/03/17 05:00 12/03/17 05:11 Orders Procedure Category Date Status Time Ondansetron Odt PHA 12/02/17 In Process (Zofran Odt) 20:30 Vital Signs ER 12/02/17 Transmitted 20:53 Bp Monitoring ER 12/02/17 Transmitted 20:53 Structural Shop Helper ER 12/02/17 Transmitted 20:53 Continuous Pulse ER 12/02/17 Transmitted Oximetry 20:53 Temperature Monitoring ER 12/02/17 Transmitted 20:53 Saline Lock ER 12/02/17 Transmitted 20:53 Cath Bladder ER 12/02/17 Transmitted Non-Indwelling 20:53 Basic Metabolic Panel LAB 12/02/17 Complete 20:53 Cbc W Autodiff LAB 12/02/17 Complete 20:53 Troponin I LAB 12/02/17 Complete 20:53 Protime LAB 12/02/17 Complete 20:53 Ckmb Isoenzymes LAB 12/02/17 Complete 20:53 Creatine Kinase LAB 12/02/17 Complete 20:53 Lipase LAB 12/02/17 Complete 20:53 Hepatic Panel LAB 12/02/17 Complete 20:53 Magnesium LAB 12/02/17 Complete 20:53 Thyroid Stim Hormone LAB 12/02/17 Complete (Tsh) 20:53 D-Dimer LAB 12/02/17 Complete 20:53 Ua, Cult If Indicated LAB 12/02/17 Complete 20:53 Nt-Pro Bnp LAB 12/02/17 Complete 20:53 12 Lead Ekg EKG 12/02/17 Complete 20:53 Partial LAB 12/02/17 Complete Thromboplastin Time 20:53 Pulse Oximetry: LAURA 12/02/17 In Process Standing Order 20:53 Iv Ringers PHA 12/02/17 Complete Solution,Lactated (Iv 21:00 Acute Abdomen Series RAD 12/02/17 Resulted 20:53 Blood Culture CRYSTAL 12/02/17 In Process 20:53 Apply/Change Dressing LAURA 12/02/17 In Process 20:53 Ceftriaxone Sodium PHA 12/02/17 Complete (Rocephin) 21:00 Famotidine Pf (Pepcid PHA 12/02/17 Complete Vial) 21:30 Fentanyl Pf (Fentanyl PHA 12/02/17 Complete 2ml Vial) 21:30 Iohexol 240 Mg/Ml PHA 12/02/17 Complete (Omnipaque 240 Mg/Ml) 22:00 Iohexol 300 Mg/Ml PHA 12/02/17 Complete (Omnipaque 300 Mg/Ml) 22:00 Iv Normal Saline 50ml PHA 12/02/17 Complete (Iv Sodium Chlorid 21:19 Ceftriaxone Sodium PHA 12/02/17 Complete (Rocephin) 21:19 Ondansetron Pf PHA 12/02/17 Complete (Zofran) 21:21 Contrast Given (Do PHA 12/02/17 In Process Not Chart On This Ent 21:30 Ondansetron Pf PHA 12/02/17 Complete (Zofran) 22:00 Diphth,Pertuss(Acell),Tet PHA 12/02/17 Complete Tox (Boostrix) 22:30 Promethazine Im PHA 12/02/17 Complete (Phenergan Im) 22:30 Diphenhydramine PHA 12/02/17 Complete (Benadryl) 22:30 Ct Chest Abd Pelvis CT 12/02/17 Resulted W/Contrast 20:53 Sodium Bicarb Adult PHA 12/02/17 Complete 8.4% Syr (Sodium Bic 23:45 Magnesium Sulfate 2gm PHA 12/02/17 Complete (Magnesium Sulfate 23:45 Urine Culture CRYSTAL 12/02/17 In Process 23:42 Metronidazole 500mg PHA 12/03/17 Complete Premix (Flagyl Premi 01:00 Thiamine PHA 12/03/17 Complete 01:13 Mvi, Adult No.4 With PHA 12/03/17 Complete Vit K (Infuvite Te[place]ilo 01:13 Folic Acid Syringe PHA 12/03/17 Complete For Er (Folic Acid Sy 01:13 [place] Order ADT 12/03/17 Transmitted Ed [place] Order ADT 12/03/17 Transmitted 01:28 Code Status CODE 12/03/17 Complete 01:28 Vital Signs, Per LAURA 12/03/17 In Process Protocol 01:28 Ambulate With LAURA 12/03/17 In Process Assistance 01:28 Fall Precautions LAURA 12/03/17 In Process 01:28 Ondansetron Pf PHA 12/03/17 In Process (Zofran) 01:30 Fentanyl Pf (Fentanyl PHA 12/03/17 In Process 2ml Vial) 01:30 Pneumatic Compression LAURA 12/03/17 In Process Device 01:28 Ceftriaxone Sodium PHA 12/03/17 In Process (Rocephin) 21:00 Metronidazole 500mg PHA 12/03/17 In Process Premix (Flagyl Premi 06:00 Famotidine (Pepcid) PHA 12/03/17 In Process 09:00 Iv Ringers PHA 12/03/17 Complete Solution,Lactated (Iv 01:30 Bacitracin/Polymyxin PHA 12/03/17 In Process B Topical (Polyspor 09:00 Promethazine Im PHA 12/03/17 In Process (Phenergan Im) 01:30 Diphenhydramine PHA 12/03/17 Complete (Benadryl) 01:30 Iv Ringers PHA 12/03/17 Complete Solution... W/Folic 04:00 Admit Orders ADT 12/03/17 Transmitted Flu Vacc Ts PHA 12/03/17 Complete (5yr+)/Pf (Afluria T 09:00 Cbc W Autodiff LAB 12/03/17 Complete 06:00 Comprehensive LAB 12/03/17 Complete Metabolic Panel 06:00 Venous Lower Ext US 12/03/17 Resulted Bilateral 07:30 Clear Liquid Diet DIET 12/03/17 Transmitted Breakfast Code Status CODE 12/03/17 Transmitted 04:33 Diphenhydramine Hcl PHA 12/03/17 In Process (Benadryl) 05:00 Amylase LAB 12/03/17 Complete 06:28 Lipase LAB 12/03/17 Complete 06:28 Vital Signs Date Time Temp Pulse Resp B/P (MAP) Pulse Ox O2 Delivery O2 Flow Rate FiO2 12/03/17 10:59 98.1 70 20 147/65 (92) 98 Room Air DIONICIO HERRERA DO Dec 03, 2017 13:18
== END 2017-12-03 14:15 | disposition home or self-care (01) | DRG 392 ==
LOC: ER 20:16 → 1 SOUTH 12-03 03:29
PROVIDERS: ADMIT Neuromusculoskeletal Medicine & OMM; ATTEND Neuromusculoskeletal Medicine & OMM
DX: K52.9 Noninfective gastroenteritis and colitis, unspecified (principal); K57.32 Diverticulitis of large intestine without perforation or abscess without bleeding; E87.1 Hypo-osmolality and hyponatremia; K80.10 Calculus of gallbladder with chronic cholecystitis without obstruction; L03.114 Cellulitis of left upper limb; N39.0 Urinary tract infection, site not specified; E86.0 Dehydration; I25.10 Atherosclerotic heart disease of native coronary artery without angina pectoris; E83.42 Hypomagnesemia; R79.1 Abnormal coagulation profile; S51.812A Laceration without foreign body of left forearm, initial encounter; X58.XXXA Exposure to other specified factors, initial encounter; Y93.89 Activity, other specified; Y92.89 Other specified places as the place of occurrence of the external cause; Y99.8 Other external cause status
CPT/HCPCS: 36415; 51701; 71260; 74022; 74177; 80048; 80053; 80076; 81001; 82150; 82553; 83690; 83735; 83880; 84443; 84484; 85025; 85379; 85610; 85730; 87040; 87086; 90471; 90715; 90756; 93005; 93970; 96365; 96366; 96367; 96368; 96372; 96375; J0696; J1200; J2550; J3475; J3490; J7120; Q0162; Q0163; Q9966; Q9967; S0028; 99285-25; Q2035

== ENCOUNTER 2019-06-29 10:40 | Emergency (ER) | payer MEDICARE, BC ==
[~2019-06-29] VITALS: Ht 162.6 cm; Wt 49.1 kg
[2019-06-29 10:40] VITALS: BP 159/95
[~2019-06-29 10:40] MED LIST: ASCO500C9 PO; ASPI81TA59 PO; CHOL10003 PO; LOSA25TA11 PO; THYR16.2 PO; [UNRECOGNIZED DRUG - OTHER]
--- NOTE | 2019-06-29 11:48 | RAD ---
AP and lateral radiographs of the thoracolumbar spine June 29, 2019 CLINICAL HISTORY: Fall 4 weeks ago with continued lower mid/upper lower back pain. Comparison is made to a CT scan of the chest dated 12/03/2017. AP and lateral digital radiographs of the mid and lower thoracic spine to include the lumbar spine were obtained. The spine is imaged from T5 through S3 on the lateral radiograph and T6 through the sacrum on the AP radiograph. There is diffuse osteopenia of the visualized bony structures. Surgical clips are seen within the right upper quadrant of the abdomen consistent with a cholecystectomy. Very mild S-shaped curvature of the thoracolumbar spine is seen. Degenerative changes are seen involving the visualized thoracic disc spaces and throughout the lumbar disc spaces consisting of varying degrees of disc space narrowing, vertebral endplate sclerosis and minimal to mild anterior vertebral body osteophyte formation. Old compression fractures of the T11 and T12 vertebral bodies are seen. No retropulsion of bone fragments into the central spinal canal is noted. A relatively acute appearing compression fracture is seen involving the L1 vertebral body. This vertebral body has lost approximately 50 percent of its normal height. No retropulsion of bone fragments into the central spinal canal seen. No additional acute compression fracture is seen. Degenerative changes are seen involving the facet joints of the lower thoracic and mid and lower lumbar disc spaces. Atherosclerotic calcification abdominal aorta and its branches is noted. IMPRESSION: A relatively acute appearing compression fracture is seen involving the L1 vertebral body. No retropulsion of bone fragments into the central spinal canal is noted. Electronically signed by: Yonathan Dee MD (06/29/2019 11:45 AM) [id number]
--- NOTE | 2019-06-29 11:59 | PHYS DOC ---
Past History Past Medical History: CAD, Diverticulitis, Gallstones, Heart Disease, Hypertension, Hypothyroid, UTI Past Surgical History: Pacemaker Alcohol Use: None Drug Use: None General Adult EDM: Chief Complaint: BACK PAIN OR INJURY HPI: HPI: 88-year-old female presents with back pain is been going on for about 4 weeks. The patient had a mechanical fall 4 weeks ago and had some bruising on the left side of her back and near the middle of her back. That has improved, but she still has an intermittent, deep "gnawing" pain. She decided since it has not gotten better after all this time, she should have it evaluated. She has a known compression fracture for a long time at T12. Patient denies numbness, ti ngling, or altered sensation. When she walks the pain is the worst. It can get up to a moderate to severe and causes her some nausea. She has no other complaints at this time. Review of Systems: Review of Systems: Constitutional: Denies fever or chills Eyes: Denies change in visual acuity HENT: Denies nasal congestion or sore throat Respiratory: Denies cough or shortness of breath Cardiovascular: Denies chest pain or edema GI: Denies abdominal pain, nausea, vomiting, bloody stools or diarrhea : Denies dysuria Musculoskeletal: Low back pain Integument: Denies rash Neurologic: Denies headache, focal weakness or sensory changes Endocrine: Denies polyuria or polydipsia Lymphatic: Denies swollen glands Psychiatric: Denies depression or anxiety Heart Score: Risk Factors: Risk Factors: DM, Current or recent (<one month) smoker, HTN, HLP, family history of CAD, obesity. Risk Scores: Score 0 - 3: 2.5% MACE over next 6 weeks - Discharge Home Score 4 - 6: 20.3% MACE over next 6 weeks - Admit for Clinical Observation Score 7 - 10: 72.7% MACE over next 6 weeks - Early Invasive Strategies Allergies: Allergies: Allergies Coded Allergies Type Severity Reaction Last Updated Verified No Known Drug Allergies 12/02/17 No Physical Exam: PE: Constitutional: Well developed, well nourished, no acute distress, non-toxic appearance. [] HENT: Normocephalic, atraumatic, bilateral external ears normal, oropharynx moist, no oral exudates, nose normal. [] Eyes: PERRLA, EOMI, conjunctiva normal, no discharge. [] Neck: Normal range of motion, no tenderness, supple, no stridor. [] Cardiovascular:Heart rate regular rhythm, no murmur [] Lungs & Thorax: Bilateral breath sounds clear to auscultation [] Abdomen: Bowel sounds normal, soft, no tenderness, no masses, no pulsatile masses. [] Skin: Warm, dry, no erythema, no rash. [] Back: No tenderness on palpation, no CVA tenderness. [] Extremities: No tenderness, no cyanosis, no clubbing, ROM intact, no edema. [] Neurologic: Alert and oriented X 3, normal motor function, normal sensory function, no focal deficits noted. [] Psychologic: Affect normal, judgement normal, mood normal. [] Current Patient Data: Vital Signs: Vital Signs Date Time Temp Pulse Resp B/P (MAP) Pulse Ox O2 Delivery O2 Flow Rate FiO2 06/29/19 10:40 98.5 110 16 159/95 (116) 96 Room Air EKG: EKG: [] Radiology/Procedures: Radiology/Procedures: [] Impressions: AP and lateral radiographs of the thoracolumbar spine June 29, 2019 CLINICAL HISTORY: Fall 4 weeks ago with continued lower mid/upper lower back pain. Comparison is made to a CT scan of the chest dated 12/03/2017. AP and lateral digital radiographs of the mid and lower thoracic spine to include the lumbar spine were obtained. The spine is imaged from T5 through S3 on the lateral radiograph and T6 through the sacrum on the AP radiograph. There is diffuse osteopenia of the visualized bony structures. Surgical clips are seen within the right upper quadrant of the abdomen consistent with a cholecystectomy. Very mild S-shaped curvature of the thoracolumbar spine is seen. Degenerative changes are seen involving the visualized thoracic disc spaces and throughout the lumbar disc spaces consisting of varying degrees of disc space narrowing, vertebral endplate sclerosis and minimal to mild anterior vertebral body osteophyte formation. Old compression fractures of the T11 and T12 vertebral bodies are seen. No retropulsion of bone fragments into the central spinal canal is noted. A relatively acute appearing compression fracture is seen involving the L1 vertebral body. This vertebral body has lost approximately 50 percent of its normal height. No retropulsion of bone fragments into the central spinal canal seen. No additional acute compression fracture is seen. Degenerative changes are seen involving the facet joints of the lower thoracic and mid and lower lumbar disc spaces. Atherosclerotic calcification abdominal aorta and its branches is noted. IMPRESSION: A relatively acute appearing compression fracture is seen involving the L1 vertebral body. No retropulsion of bone fragments into the central spinal canal is noted. Electronically signed by: Yonathan Castellon MD (06/29/2019 11:45 AM) [id number] DICTATED AND SIGNED BY: YONATHAN CASTELLON MD DATE: 06/29/19 1145 CC: JORGE HELM DO; CYNDI POWELL MD ~ Course & Med Decision Making: Course & Med Decision Making Pertinent Labs and Imaging studies reviewed. (See chart for details) Review of the patient's old imaging shows that she has had a longtime T12 compression fracture. She also had some wedge deformity of T11 starting in at least 2018. She has a new finding now of L1 compression fracture which appears to be recent. This is likely the source of the patient's pain. I advised she follow-up with her primary care physician and discuss seeing a specialist for options. She states verbal understanding. She is stable for discharge at this time. [] Dragon Disclaimer: Dragon Disclaimer: This electronic medical record was generated, in whole or in part, using a voice recognition dictation system. Departure Departure: Impression: Primary Impression: Compression fracture of L1 lumbar vertebra Qualified Codes: S32.010A - Wedge compression fracture of first lumbar vertebra, initial encounter for closed fracture Disposition: HOME, SELF-CARE Condition: STABLE Referrals: CYNDI POWELL MD (PCP) Patient Instructions: Back, Compression Fracture JORGE HELM DO Jun 29, 2019 11:59
[2019-06-29] MEDS ORDERED: TRAM50TA PO (12:07)
== END 2019-06-29 12:10 | disposition home or self-care (01) ==
LOC: ER 10:40
DX: S32.010A Wedge compression fracture of first lumbar vertebra, initial encounter for closed fracture (principal); I25.10 Atherosclerotic heart disease of native coronary artery without angina pectoris; I11.9 Hypertensive heart disease without heart failure; E03.9 Hypothyroidism, unspecified; Z87.440 Personal history of urinary (tract) infections; Z95.0 Presence of cardiac pacemaker; W18.39XA Other fall on same level, initial encounter; Y93.89 Activity, other specified; Y92.89 Other specified places as the place of occurrence of the external cause; Y99.8 Other external cause status
CPT/HCPCS: 72080; 99284

== ENCOUNTER → 2019-10-11 | Outpatient (CLI) | payer MEDICARE, BC ==
[~2019-10-11] MED LIST changes: +TRAM50TA PO
--- NOTE | 2019-10-11 17:50 | RAD ---
EXAM: HIP RIGHT 2V WITH PELVIS. HISTORY: Right hip pain. COMPARISON: None. FINDINGS: Osteopenia is at least moderate. A fracture of the left distal inferior pubic ramus appears chronic. Correlate for focal tenderness. There are moderate degenerative changes of the pubic symphysis. Atherosclerotic calcifications are noted. There is a component of acetabular retroversion bilaterally. There is mildly decreased femoral head/neck offset anteriorly. The joint spaces of both hips are maintained. IMPRESSION: 1. Correlate for mild femoroacetabular impingement bilaterally. 2. Chronic appearing left inferior pubic ramus fracture. Correlate for focal tenderness to confirm chronicity. Electronically signed by: Agnes Yoder MD (10/11/2019 5:47 PM) [id number]
== END ==
LOC: PMG 15:22
PROVIDERS: ATTEND Family Medicine
DX: S32.592A Other specified fracture of left pubis, initial encounter for closed fracture (principal); X58.XXXA Exposure to other specified factors, initial encounter; Y93.89 Activity, other specified; Y92.89 Other specified places as the place of occurrence of the external cause; Y99.8 Other external cause status
CPT/HCPCS: 73502